=== PATIENT | female | born 1990 | race Caucasian/White ===

== ENCOUNTER 2020-09-16 17:26 | Emergency (ER) | payer BC, SELFPAY ==
[2020-09-16 17:28] VITALS: BP 110/70; PULSE 103; RESP 16; TEMP 36.8; O2SAT 96; BMI 22.6
--- NOTE | 2020-09-16 17:49 | HMH.EDUTC ---
[facility] [place] Clinical Impression: Cat bite of hand Qualifiers: Encounter type: initial encounter Laterality: left Qualified Code(s): S61.452A - Open bite of left hand, initial encounter; W55.01XA - Bitten by cat, initial encounter Cellulitis Qualifiers: Site of cellulitis: extremity Site of cellulitis of extremity: finger Laterality: left Qualified Code(s): L03.012 - Cellulitis of left finger Disposition: Home, Self-Care Condition on Discharge: Good Instructions: DI for Cat Bite Additional Instructions: Take antibiotics as prescribed. Epsom salt soaks several times a day. Return to [facility] if redness, pain, swelling, drainage get worse or you run a fever. Follow up with PCP and OB next week. Prescriptions: Amoxicillin/Potassium Clav [Augmentin 875125 Tablet] 1 tab PO Q12H 10 Days #20 tab Transmission Status: Pending to [id number] Referrals: Roseline Shrestha [Primary Care Provider] - Time of Disposition: 18:04 Medical Decision Making - Sigifredo Inquiry Pt receiving controlled substance: No Vital Signs: 09/16/20 17:28 Temperature 98.3 F Temperature Source Oral Pulse Rate [Radial] 103 H Respiratory Rate 16 Blood Pressure [Right Arm] 110/70 Blood Pressure Mean [Right Arm] 83 Blood Pressure Position [Right Arm] Sitting 02 Sat by Pulse Oximetry 96 Oxygen Delivery Method Room Air Medical Decision Narrative: Patient declined Adacel - she would like to talk to her OB first. Has appt on Friday. [facility] [place] - General Stated complaint: AO cat bite on L thumb 1030 09/15 Time Seen by Provider: 09/16/20 17:49 Mode of Arrival: Ambulatory Source of Information: Patient Limitations: No Limitations Description of Symptoms (Recalled from Triage Doc. 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 Was bathing a cat yesterday when it bit her right wrist and her left thumb. She has redness, swelling and drainage from the left thumb. Patient is . Onset (ago): day(s) (1) Location: left Radiation: non-radiation Quality: burning Relieving factors: none Exacerbating factors: none Associated symptoms: denies other symptoms Treatments prior to arrival: none - Related Data Previous Rx's Medication Instructions Recorded Amoxicillin/Potassium Clav 1 tab PO Q12H 10 Days #20 tab 09/16/20 [Augmentin 875-125 Tablet] Allergies Allergy/AdvReac Type Severity Reaction Status Date / Time No Known Allergies Allergy Verified 09/16/20 17:59 [facility] History - Hepatitis A Screen Attestation statement:: This patient has been screened for Hepatitis A risk factors. I have reviewed the patient's past medical history: Yes ROS Obtained: Yes All systems reviewed & no additional complaints - Musculoskeletal Musculoskeletal: Reports as per HPI - Integumentary/Breasts Skin/Breast: Reports as per HPI Physical Exam - General General appearance: alert, in no apparent distress - Head Head exam: normocephalic - Eye Eye exam: Present: PERRL - ENT ENT exam: Present: normal oropharynx - Respiratory Respiratory exam: Present: normal lung sounds bilaterally - Cardiovascular Cardiovascular exam: Present: regular rate, normal rhythm - Expanded Upper Extremity Exam Left Hand exam: Present: tenderness, swelling, erythema (left thumb DIP joint) - Neurological Exam Neurological exam: Present: alert, oriented X3 - Psychiatric Psychiatric exam: Present: normal affect, normal mood - Skin Skin exam: Present: warm, dry
[2020-09-16 17:53] VITALS: BP 110/70; PULSE 103; RESP 16; TEMP 36.8; O2SAT 99; BMI 22.8
[2020-09-16 18:09] VITALS: BP 000/00; PULSE 0; RESP 14; TEMP 36.6
== END 2020-09-16 18:17 | disposition home or self-care (01) ==
LOC: ER 17:38 → UTC 17:38
PROVIDERS: Emergency Provider Physician Assistant; PCP Family Medicine
DX: S61.452A Open bite of left hand, initial encounter; W55.01XA Bitten by cat, initial encounter

== ENCOUNTER 2023-10-17 16:25 | Emergency (ER) | payer BC, SELFPAY ==
[2023-10-17 16:26] VITALS: BP 95/59; PULSE 113; RESP 18; TEMP 36.8; O2SAT 100; BMI 21.0
--- NOTE | 2023-10-17 16:41 | CT_ITS ---
PROCEDURE INFORMATION: Exam: CT Head Without Contrast Exam date and time: 10/17/2023 6:08 PM Age: 32 years old Clinical indication: Injury or trauma; Other: Ran into object; Blunt trauma (contusions or hematomas) and laceration; Without residual foreign body; Other: Nose; Injury details: Patient ran into metall sheeting sticking out of truck; Additional info: Facial injury, dizziness TECHNIQUE: Imaging protocol: Computed tomography of the head without contrast. Radiation optimization: All CT scans at this facility use at least one of these dose optimization techniques: automated exposure control; mA and/or kV adjustment per patient size (includes targeted exams where dose is matched to clinical indication); or iterative reconstruction. COMPARISON: No relevant prior studies available. FINDINGS: Brain: There is no acute intracranial hemorrhage or abnormal extra-axial fluid collection identified. There is no intracranial mass effect or shift of midline structures. The slaughter-white differentiation is preserved throughout. There is no sulcal effacement. The basilar cisterns are open. Cerebral ventricles: No hydrocephalus or ventricular effacement. Paranasal sinuses: There is partial sinus opacification. No air-fluid levels. Mastoid air cells: Visualized mastoid air cells are well aerated. Bones: No calvarial fracture or destructive osseous lesions are seen. Soft tissues: Unremarkable. IMPRESSION: No acute intracranial pathology identified by CT.
--- NOTE | 2023-10-17 16:41 | CT_ITS ---
PROCEDURE INFORMATION: Exam: CT Maxillofacial Without Contrast Exam date and time: 10/17/2023 6:10 PM Age: 32 years old Clinical indication: Injury or trauma; Other: Face vs metal sheeting; Not specified; Injury details: PT states that she ran into metal sheeting sticking out of the truck bed. Laceration on nose; Additional info: Facial injury, dizziness TECHNIQUE: Imaging protocol: Computed tomography of the face without contrast. Radiation optimization: All CT scans at this facility use at least one of these dose optimization techniques: automated exposure control; mA and/or kV adjustment per patient size (includes targeted exams where dose is matched to clinical indication); or iterative reconstruction. COMPARISON: CT HEAD/BRAIN WO CON 10/17/2023 6:08 PM FINDINGS: Orbital cavities: Orbits are normal. Globes are unremarkable. Paranasal sinuses: There is partial opacification left ethmoid air cells and left sphenoid sinus. No air-fluid levels are seen. Bones: No acute facial bone fracture is identified. Soft tissues: Unremarkable. IMPRESSION: No acute facial fracture identified.
--- NOTE | 2023-10-17 16:50 | ED_ITS ---
Discharge Plan Disposition Patient Disposition: Home, Self-Care Condition: Good Prescriptions Prescriptions: No Action amoxicillin-pot clavulanate 1 EACH tablet 1 tab PO Q12H 10 Days Qty: 20 0RF Referrals Follow up/Referrals: Sheldon Rudolph [Primary Care Provider] - See instructions Activity Restrictions/Add. Instructions Additional Instructions/Restrictions: You were evaluated in the emergency department today. Please keep your wounds clean and dry. Do not submerge under any water. Do not scrub or rub them, as it may make the sutures unravel early. Your stitches will dissolve over the next 7 to 10 days. Monitor for any signs of infection, such as redness, warmth, or pus draining from the wounds. Return to the emergency department right away for any new concerns. Clinical Impressions Clinical Impression: Laceration of nose, Abrasion of forehead Instructions Patient Instructions: DI for Laceration Repair Print Language Print Language: Occitan Discharge ED Provider: Lolis Barbour General Adult HPI General Chief complaint: Wound/Laceration Stated complaint: AO fall 10/16 @1620, facial lac, dizzy Time Seen by Provider: 10/17/23 16:38 Mode of Arrival: Wheelchair Source of Information: Patient and Significant Other Limitations: No Limitations Description of Symptoms (Recalled from ER Triage Doc. by RN): c/o nose laceration after running into some metal in her truck History of Present Illness HPI narrative: This patient is a 32-year-old female who denies significant past medical history presenting to the emergency department for evaluation with concern for a laceration to her nose after running into some sheet metal that was hanging out of her 's truck. She did not lose consciousness, but afterward she developed dizziness and started seeing spots. She states that she became extremely lightheaded and nauseated in the lobby, vomiting several times. She states she still feels very weak, lightheaded, and is still seeing spots. She denies any other injuries aside from the wounds to her face. No bleeding from inside her nose, just the bridge of her nose where the wound is. She is unsure when her last tetanus shot was. Related Data Previous Rx's ?Medication ?Instructions ?Recorded amoxicillin 875 mg-potassium 1 tab PO Q12H 10 days #20 tabs 09/16/20 clavulanate 125 mg tablet Allergies Allergy/AdvReac Type Severity Reaction Status Date / Time No Known Allergies Allergy Verified 09/16/20 17:59 [facility] Disclaimer: The information contained in this section may have been updated after the patient was seen, as this information can be updated by other users. Social History Smoking Status: Never smoker alcohol intake: never current occupational status: employed Travel in the last 8 weeks: None ROS Obtained: Yes All systems reviewed & no additional complaints except as documented Physical Exam General General appearance: alert and in no apparent distress Head Head exam: normocephalic and other (Abrasion to the forehead this very superficial. Small laceration to the bridge of the nose that is hemostatic.) Eye Eye exam: Present normal appearance, PERRL and EOMI ENT ENT exam: Present normal oropharynx, mucous membranes moist, normal external ear exam and other (Laceration to the bridge of the nose with no bleeding from the nose) Neck Neck exam: Present normal inspection, full ROM and trachea midline; Absent tenderness Chest Chest inspection: Present normal inspection and symmetric chest wall rise; Absent tenderness Respiratory Respiratory exam: Present normal lung sounds bilaterally; Absent respiratory distress, wheezes, stridor or accessory muscle use Cardiovascular Cardiovascular exam: Present regular rate and normal rhythm Abdominal Exam Abdominal exam: Present soft; Absent distention, tenderness or guarding Extremities Exam Extremities exam: Present normal inspection, full ROM and normal capillary refill; Absent tenderness or edema Back Exam Back exam: Present normal inspection and full ROM; Absent tenderness Neurological Exam Neurological exam: Present alert, oriented X3, CN II-XII intact and normal gait; Absent motor sensory deficit Psychiatric Psychiatric exam: Present normal affect and normal mood Skin Skin exam: Present diaphoresis and pallor Medical Decision Making Medical Records Medical records reviewed: Yes I reviewed the patient's medical records. Sigifredo Inquiry Pt receiving controlled substance: No Vital Signs: 10/17/23 16:26 10/17/23 18:30 10/17/23 19:00 Temperature 98.2 F Temperature Source Oral Pulse Rate 89 85 Pulse Rate [Left Radial] 113 H Respiratory Rate 18 Blood Pressure 102/71 L 116/79 Blood Pressure [Right Arm] 95/59 L Blood Pressure Mean 91 Blood Pressure Mean [Right Arm] 71 Blood Pressure Source Blood Pressure Source [Right Arm] Automatic Cuff Blood Pressure Position Blood Pressure Position [Right Arm] Sitting 02 Sat by Pulse Oximetry 100 100 100 Oxygen Delivery Method Room Air Room Air 10/17/23 19:32 Temperature 98.1 F Temperature Source Oral Pulse Rate 104 H Pulse Rate [Left Radial] Respiratory Rate 14 Blood Pressure 116/79 Blood Pressure [Right Arm] Blood Pressure Mean Blood Pressure Mean [Right Arm] Blood Pressure Source Automatic Cuff Blood Pressure Source [Right Arm] Blood Pressure Position Sitting Blood Pressure Position [Right Arm] 02 Sat by Pulse Oximetry Oxygen Delivery Method Room Air Lab Data Lab results reviewed: Yes I reviewed the patient's lab results. Lab Results 10/17/23 16:57: Serum HCG, Qual Negative Orders (Tests/Meds): ED MEDICATIONS Discontinued Medications Generic Name Dose Route Start Last Admin Trade Name Freq PRN Reason Stop Dose Admin Bacitracin 1 each 10/17/23 19:19 10/17/23 19:23 Bacitracin Oint 0.9gm Udp TP 10/17/23 19:20 1 each ONCE ONE Administration Lactated Ringer's 1,000 mls @ 999 mls/hr 10/17/23 16:41 10/17/23 16:58 Lactated Ringer's 1000 Ml Bag IV 10/17/23 17:41 999 mls/hr .Q1H1M ONE Administration Ketorolac Tromethamine 15 mg 10/17/23 16:41 10/17/23 16:59 Ketorolac 30mg/Ml Vial IV 10/17/23 16:42 15 mg ONCE ONE Administration Lidocaine HCl 20 ml 10/17/23 18:38 10/17/23 18:44 Lidocaine 1% 20ml Mdv IJ 10/17/23 18:39 20 ml ONCE ONE Administration Ondansetron HCl 4 mg 10/17/23 16:41 10/17/23 16:59 Ondansetron 4mg/2ml Vial IV 10/17/23 16:42 4 mg ONCE ONE Administration Tetanus/Reduced Diphtheria/Acell Pertussis 0.5 ml 10/17/23 16:41 10/17/23 16:59 Tet/Diphth/Pert-Adult 0.5ml Syringe IM 10/17/23 16:42 0.5 ml .ONCE ONE Administration ORDERS Category Date Time Status CT facial bones wo con Stat Cat Scan 10/17/23 16:[address] head/brain wo con Stat Cat Scan 10/17/23 16:41 Completed Serum [HCG Qualitative, Serum] Stat Lab 10/17/23 16:57 Completed Medical Decision Narrative: In summary, this patient is a 32-year-old female presenting to the Emergency Department for evaluation of facial injury. Differential diagnoses considered include but are not limited to laceration, abrasion, facial fracture, contusion, concussion. Ruling out the most morbid conditions drove assessment. On exam, the patient is well-appearing. She did have an episode of presyncope and vomiting in the lobby, but she states that she does this if she sees blood. I feel she likely had a vasovagal response. Workup included CT head and face after test was obtained and was negative. I independently interpreted CT scans prior to the radiologist read and noted this facial fracture and no obvious intracranial bleed. Please see their read for final interpretation. After consent was obtained, laceration of the face was repaired. She had 1.5 cm curvilinear laceration to the bridge of the nose, which was hemostatic. Wound was explored and thoroughly irrigated. Please see her procedure note for further documentation. At this time, I feel that she is appropriate for discharge home with instructions for wound care, close outpatient follow-up, and strict return precautions. She was discharged after all questions were answered. Procedures Risk/Benefits of Procedure(s) Were Explained: Yes Laceration Laceration 1: Site: face Size (cm): 1.5 Description: linear (Curvilinear) Depth: simple, single layer Local Anesthetic: lidocaine 1% Amount of anesthesia used (mL): 2 Pre-repair: wound explored, irrigated extensively and deep structures intact Skin layer closed with: other (Fast-absorbing gut) Size (cm): 5-0 Number of sutures: 6 Technique: simple, interrupted Critical Care Critical Care Time Critical Care Time: No
[2023-10-17] MEDS: LACTATED RINGERS 1000ML 1,000 ML 999 ML IV (16:58)
[2023-10-17] MEDS: TET/DIPHTH/PERT-ADULT 0.5ML SYRINGE 0.5 ML IM (16:59)
[2023-10-17] MEDS: KETOROLAC 30MG/ML VIAL 15 MG IV (16:59)
[2023-10-17] MEDS: ONDANSETRON 4MG/2ML VIAL 4 MG IV (16:59)
[2023-10-17 17:45] LABS: HCG Qualitative, Serum Negative (Negative)
--- NOTE | 2023-10-17 18:05 | PC.NURSE ---
PT TO CT
[2023-10-17 18:30] VITALS: BP 102/71; PULSE 89; O2SAT 100
[2023-10-17] MEDS: LIDOCAINE 1% 20ML MDV 20 ML IJ (18:44)
[2023-10-17 19:00] VITALS: BP 116/79; PULSE 85; O2SAT 100
[2023-10-17] MEDS: BACITRACIN OINT 0.9GM UDP 1 EACH TP (19:23)
[2023-10-17 19:32] VITALS: BP 116/79; PULSE 104; RESP 14; TEMP 36.7; O2SAT 100
== END 2023-10-17 19:30 | disposition home or self-care (01) ==
PROVIDERS: Emergency Provider Emergency Medicine; PCP Pediatrics
DX: S01.21XA Laceration without foreign body of nose, initial encounter (principal); R42 Dizziness and giddiness; R11.2 Nausea with vomiting, unspecified; R53.1 Weakness; W22.8XXA Striking against or struck by other objects, initial encounter; Z23 Encounter for immunization
CPT/HCPCS: 12011; 70450; 70486; 84703; 90471; 90715; 96361; 96374; 96375; 99284; J1885; J2405; J7120